=== PATIENT | female | born 1960 | race Caucasian/White ===

== ENCOUNTER 2021-09-19 09:12 | Day surgery (SDC) | payer OTHER ==
[~2021-09-19] VITALS: Ht 154.9 cm; Wt 68.5 kg
[2021-09-19] MEDS ORDERED: MIDAZOLAM 2 MG/2 ML VIAL ONE (11:25)
[2021-09-19] MEDS ORDERED: LIDOCAINE 2% 100 MG/5 ML UJET TP ONE (11:25)
[2021-09-19] MEDS ORDERED: fentaNYL citrate 0.05 MG/ML VIAL ONE (11:25)
[2021-09-19] MEDS ORDERED: MIDAZOLAM 2 MG/2 ML VIAL IVP ONE (13:50)
[2021-09-19] MEDS ORDERED: fentaNYL citrate 0.05 MG/ML VIAL IVP ONE (13:50)
== END 2021-09-19 14:30 | disposition home or self-care (01) ==
LOC: MOR 09:12 → MMU 09:13 → MOR 14:30
PROVIDERS: ATTEND Internal Medicine Gastroenterology
DX: Z12.11 Encounter for screening for malignant neoplasm of colon (principal); K29.70 Gastritis, unspecified, without bleeding; K64.9 Unspecified hemorrhoids; R10.13 Epigastric pain; I10 Essential (primary) hypertension; E78.00 Pure hypercholesterolemia, unspecified; Z79.899 Other long term (current) drug therapy
CPT/HCPCS: 36415; 43239; 45378; 86677; 87426; J2250; J3010